=== PATIENT | female | born 1990 | race Two or more races ===

== ENCOUNTER 2020-01-07 07:49 | Emergency (ER) | payer BC, OTHER ==
[~2020-01-07] VITALS: Ht 162.6 cm; Wt 64.9 kg
[2020-01-07 08:59] LABS: Urine Bacteria FEW /hpf (None Seen); Urine Blood 3+ /uL (Negative); Urine Mucus FEW (None Seen); Urine Specific Gravity 1.015 (1.001-1.035); Urine WBC 53 /hpf (0 - 5)
[2020-01-07] MEDS ORDERED: cefTRIAXone W LIDOCAINE 1 GM IM IM ONE (09:15)
[2020-01-07] MEDS ORDERED: AZITHROMYCIN 250 MG TAB PO ONE (09:15)
[2020-01-07] MEDS ORDERED: cefTRIAXone SOD 1,000 MG VL ONE (09:27)
[2020-01-07] MEDS ORDERED: SODIUM CHLORIDE 0.9% 1,000 ML IV ONE (09:28)
[2020-01-07] MEDS ORDERED: cefTRIAXone 1GM/50ML D5W 50 ML IV ONE (09:45)
[2020-01-07 10:54] VITALS: BP 122/72
== END 2020-01-07 10:56 | disposition home or self-care (01) ==
LOC: ER 07:49
DX: N20.0 Calculus of kidney (principal); N39.0 Urinary tract infection, site not specified; J18.9 Pneumonia, unspecified organism; Z20.828 Contact with and (suspected) exposure to other viral communicable diseases
CPT/HCPCS: 36415; 71045; 74176; 81001; 87426; 96365; 99285; C9803; J0696; U0003

== ENCOUNTER 2021-12-18 09:10 | Emergency (ER) | payer BC ==
[~2021-12-18] VITALS: Ht 162.6 cm; Wt 69.7 kg
[2021-12-18 09:59] VITALS: BP 109/62
[2021-12-18 10:52] LABS: Basophils # (auto) 0 10 ^3/uL (0-0.2); Basophils % (auto) 0.4 % (0.0-2.0); Eosinophils # (auto) 0.1 10 ^3/uL (0-0.8); Eosinophils % (auto) 1.3 % (0.0-7.0); Hematocrit 41.1 % (36.0-46.0); Hemoglobin 13.6 g/dL (12.2-16.2); Lymphocytes # (auto) 2.3 10 ^3/uL (0.4-5.4); Lymphocytes % (auto) 30.7 % (10.0-50.0); Mean Corpuscular Hemoglobin 28.5 pg (28.0-32.0); Mean Corpuscular Volume 86.4 fL (80.0-100.0); Monocytes # (auto) 0.8 10 ^3/uL (0-1.3); Monocytes % (auto) 10.1 % (0.0-12.0); Neutrophils # (auto) 4.3 10 ^3/uL (1.6-8.6); Neutrophils % (auto) 57.5 % (37.0-80.0); Red Blood Cells 4.75 10^6/uL (4.0-5.20); Red Cell Distribution Width 13.5 % (11.8-14.3); White Blood Cell 7.6 10^3/uL (4.4-10.8)
[2021-12-18 11:18] LABS: Albumin 3.7 g/dL (3.4-5.0); Calcium 8.9 mg/dL (8.5-10.1); Potassium 4.3 mmol/L (3.5-5.1)
[2021-12-18 11:21] LABS: BUN/Creatinine Ratio 15.4; Bilirubin, Total 0.3 mg/dL (0.2-1.0); Total Protein 7.7 g/dL (6.4-8.2)
[2021-12-18 11:46] LABS: Urine Bacteria FEW /hpf (None Seen); Urine Blood Negative /uL (Negative); Urine Mucus FEW (None Seen); Urine Specific Gravity 1.021 (1.001-1.035); Urine WBC 1 /hpf (0 - 5)
[2021-12-18] MEDS ORDERED: TRAM-297 PO (16:09)
== END 2021-12-18 17:01 | disposition home or self-care (01) ==
LOC: ER 09:10
DX: R10.84 Generalized abdominal pain (principal); R11.2 Nausea with vomiting, unspecified; R19.7 Diarrhea, unspecified; F17.210 Nicotine dependence, cigarettes, uncomplicated; Z20.822 Contact with and (suspected) exposure to COVID-19
CPT/HCPCS: 36415; 74176; 76856; 80053; 81001; 81025; 83690; 85025